=== PATIENT | male | born 1990 | race Caucasian/White ===

== ENCOUNTER 2020-05-21 09:34 | Emergency (ER) | payer SELFPAY ==
[~2020-05-21] VITALS: Ht 182.9 cm; Wt 100.0 kg
[2020-05-21 09:45] VITALS: BP 143/97
== END 2020-05-21 10:30 | disposition left against medical advice (07) ==
LOC: ER 09:34
DX: T50.901A Poisoning by unspecified drugs, medicaments and biological substances, accidental (unintentional), initial encounter (principal); F17.200 Nicotine dependence, unspecified, uncomplicated; Y92.89 Other specified places as the place of occurrence of the external cause
CPT/HCPCS: 93005; 99283; Z7610